=== PATIENT | male | born 1960 | race Caucasian/White ===

== ENCOUNTER 2019-10-20 12:11 | Emergency (ER) | payer MEDICAID ==
[~2019-10-20] VITALS: Ht 170.2 cm; Wt 72.0 kg
[2019-10-20 12:26] VITALS: BP 146/71
== END 2019-10-20 13:16 | disposition home or self-care (01) ==
LOC: ER 12:11
DX: E11.9 Type 2 diabetes mellitus without complications (principal); Z76.0 Encounter for issue of repeat prescription; Z79.4 Long term (current) use of insulin
CPT/HCPCS: 82962; 99282

== ENCOUNTER 2019-12-10 23:43 | Emergency (ER) | payer MEDICAID ==
[~2019-12-10] VITALS: Ht 170.2 cm; Wt 66.0 kg
[2019-12-11 00:06] VITALS: BP 170/92
== END 2019-12-11 02:43 | disposition left against medical advice (07) ==
LOC: ER 23:43
DX: R21 Rash and other nonspecific skin eruption (principal); Z53.21 Procedure and treatment not carried out due to patient leaving prior to being seen by health care provider